=== PATIENT | male | born 1965 | race Caucasian/White ===

== ENCOUNTER → 2022-03-31 | Outpatient (CLI) | payer MEDICARE, OTHER ==
[~2022-03-31] MED LIST: AMPYRA10 MG; ASPI81CH; BACL10 PO; Baclofen20 MG; CITA20; CLON.5 PO; FOLGARD TABLET1 EACH; GABA300T24; Icaps Mv Table1 EACH; MARIJUANA-MEDICAL; OXYC10TA19
[2022-03-31 12:27] LABS: BASOPHILS ABSOLUTE AUTO 0.03 K/mm3 (0.00-0.23); BASOPHILS PERCENT AUTO 0 % (0-2); EOSINOPHILS ABSOLUTE AUTO 0.26 K/mm3 (0.00-0.68); EOSINOPHILS PERCENT AUTO 3 % (0-6); Hematocrit 42.9 % (37.0-53.0); Hemoglobin 15.2 g/dL (13.5-17.5); IMMATURE GRAN ABSOLUTE AUTO 0.01 K/mm3 (0.00-0.10); IMMATURE GRAN PERCENT AUTO 0 % (0-1); LYMPHOCYTES ABSOLUTE AUTO 1.53 K/mm3 (0.84-5.20); LYMPHOCYTES PERCENT AUTO 17 % (21-46); MONOCYTES ABSOLUTE AUTO 0.72 K/mm3 (0.16-1.47); MONOCYTES PERCENT AUTO 8 % (4-13); Mean Corpuscular HGB 32.3 pg (26.0-34.0); Mean Corpuscular HGB Conc 35.4 g/dL (31.5-36.5); Mean Corpuscular Volume 91 fL (80-100); Mean Platelet Volume 11.8 fL (9.1-12.4); NEUTROPHILS PERCENT AUTO 72 % (41-73); Platelet Count 243 K/mm3 (150-400); RDW Coefficient Variation 11.9 % (11.7-14.2); RDW Standard Deviation 39.5 fL (35.1-46.3); White Blood Cell Count 8.95 K/mm3 (4.00-11.30)
[2022-03-31 13:02] LABS: Albumin, Blood 3.6 g/dL (3.4-5.0); Bilirubin, Total 0.7 mg/dL (0.1-1.0); Bun/Creatinine Ratio 11.6 (12.0-20.0); Calcium, Blood 8.8 mg/dL (8.5-10.1); Creatinine, Blood 1.21 mg/dL (0.60-1.20); Globulin, Blood 3.5 g/dL (2.2-4.0); Potassium, Blood 3.9 mmol/L (3.5-5.5); Total Protein, Blood 7.1 g/dL (6.4-8.2)
== END | disposition home or self-care (01) ==
LOC: LAB SHORT 12:11 → LAB 12:11
PROVIDERS: Chiropractor
DX: R07.9 Chest pain, unspecified (principal)
CPT/HCPCS: 80053; 84484; 85025; 85379

== ENCOUNTER 2022-05-23 11:30 | Emergency (ER) | payer MEDICARE, OTHER ==
[~2022-05-23] VITALS: Ht 177.8 cm; Wt 79.4 kg
[~2022-05-23 11:30] MED LIST changes: +BACL20 PO; +EFFEXOR XR37.5 MG PO; +KESIMPTA P20 MG/0.4 SC; +TAMSULOSIN HCL0.4 M1 PO
[2022-05-23] MEDS ORDERED: Roxicodone5 MG PO (11:40)
== END 2022-05-23 11:42 | disposition home or self-care (01) ==
LOC: ER 11:30
DX: Z76.0 Encounter for issue of repeat prescription (principal); J44.9 Chronic obstructive pulmonary disease, unspecified; G35 Multiple sclerosis; Z88.8 Allergy status to other drugs, medicaments and biological substances; Z79.899 Other long term (current) drug therapy; Z79.82 Long term (current) use of aspirin; Z87.891 Personal history of nicotine dependence
CPT/HCPCS: 99281

== ENCOUNTER 2022-06-12 19:29 | Observation (INO) | payer MEDICARE, OTHER ==
[~2022-06-12] VITALS: Ht 182.9 cm; Wt 79.4 kg
[~2022-06-12 19:29] MED LIST changes: +Roxicodone5 MG PO
[2022-06-12 19:57] LABS: BASOPHILS ABSOLUTE AUTO 0.02 K/mm3 (0.00-0.23); BASOPHILS PERCENT AUTO 0 % (0-2); EOSINOPHILS PERCENT AUTO 0 % (0-6); Hematocrit 37.4 % (37.0-53.0); Hemoglobin 13.6 g/dL (13.5-17.5); IMMATURE GRAN ABSOLUTE AUTO 0.06 K/mm3 (0.00-0.10); IMMATURE GRAN PERCENT AUTO 0 % (0-1); LYMPHOCYTES ABSOLUTE AUTO 0.87 K/mm3 (0.84-5.20); LYMPHOCYTES PERCENT AUTO 6 % (21-46); MONOCYTES ABSOLUTE AUTO 0.71 K/mm3 (0.16-1.47); MONOCYTES PERCENT AUTO 5 % (4-13); Mean Corpuscular HGB 32.1 pg (26.0-34.0); Mean Corpuscular HGB Conc 36.4 g/dL (31.5-36.5); Mean Corpuscular Volume 88 fL (80-100); NEUTROPHILS PERCENT AUTO 89 % (41-73); Platelet Count 267 K/mm3 (150-400); RDW Coefficient Variation 11.7 % (11.7-14.2); RDW Standard Deviation 37.3 fL (35.1-46.3); Red Blood Cell Count 4.24 M/mm3 (4.30-5.90); White Blood Cell Count 14.56 K/mm3 (4.00-11.30)
[2022-06-12 20:16] LABS: Albumin, Blood 3.2 g/dL (3.4-5.0); Albumin/Globulin Ratio 0.9 (0.8-1.8); Bun/Creatinine Ratio 12.5 (12.0-20.0); Calcium, Blood 8.9 mg/dL (8.5-10.1); Creatinine, Blood 1.12 mg/dL (0.60-1.20); Globulin, Blood 3.4 g/dL (2.2-4.0); Potassium, Blood 3.8 mmol/L (3.5-5.5); Total Protein, Blood 6.6 g/dL (6.4-8.2)
[2022-06-12 21:35] LABS: Source, Urine Clean Catch
[2022-06-12 21:45] LABS: Bilirubin, Urine Neg (Neg); Blood, Urine 1+ (Neg); Glucose Qualitative, Urine Neg (Neg); Ketones, Urine 3+ (Neg); Leukocyte Esterase, Urine Neg (Neg); Nitrite, Urine Neg (Neg); Protein, Urine 2+ (Neg); Urobilinogen, Urine NORM (Normal); pH, Urine 6.5 (5.0-8.0)
[2022-06-12 21:51] LABS: Appearance, Urine Clear (Clear); Color, Urine Yellow (P-Yellow)
[2022-06-12 21:52] LABS: Bacteria Rare /hpf; Red Blood Cells, Urine 0-2 /hpf (0-2); Squamous Epithelial Cells Few /hpf (Few); White Blood Cells, Urine 0-2 /hpf (0-5)
[2022-06-13] MEDS ORDERED: METOPROLOL SUCC25 MG PO (02:23)
[2022-06-13] MEDS ORDERED: Prinivil10 MG PO (02:24)
[2022-06-13] MEDS ORDERED: FLUTICASONE-SA1 EAC9 INH (02:24)
[2022-06-13] MEDS ORDERED: OXYC5 PO (02:25)
[2022-06-13] MEDS ORDERED: Ventolin/Prove6.7 GM INH (02:27)
[2022-06-13] MEDS ORDERED: Ondansetron Odt8 MG MM (02:29)
[2022-06-13] MEDS ORDERED: METO10 PO (02:30)
--- NOTE | 2022-06-13 04:34 | NUR ---
Shift summary: Pt arrived on unit from ED around 0030. Upon arrival pt noted he was still having nausea- PRN dose of reglan given x1 as zofran was given in the ED. Upon assessment pt lung sounds were diminshed throughout the bases. Tele monitor in place and running sinus tach, although no calls from tele overnight. Pt had c/o feeling too hot and then cold, when checking temperature pt was afebrile. Pt voiding small amounts of gage colored urine. IVF currently infusing at 150mL/hr.
[2022-06-13 06:33] LABS: Calcium, Blood 8.2 mg/dL (8.5-10.1); Creatinine, Blood 1.08 mg/dL (0.60-1.20); Potassium, Blood 3.4 mmol/L (3.5-5.5)
--- NOTE | 2022-06-13 18:28 | NUR ---
SHIFT SUMMARY; PATIENT VERY PAINFULL AND NEEDING TO BE TURNED EVERY 30 MINUTES OR SO. HE CANNOT GET COMFORTABLE. PATIENT COMPLAINS OF NAUSEA AND IS MEDICATED WITH REGLAN. HE IS ABLE TO EAT SMALL PORTIONS OF HIS MEALS TODAY. PATIENT RECEIVED A BED BATH TODAY AND HAD MULTIPLE VISITORS. HE HAS A PLEASANT AFFECT AND IS COOPERATIVE WITH CARE. HIS VITAL SIGNS ARE ELEVATED WITH B/P IN THE 140-150 SYSTOLIC RANGE AND HIS RHYTHM BEING SINUS TACH FOR MOST OF THE DAY.
--- NOTE | 2022-06-14 04:49 | NUR ---
Summary: Patient did well overnight no acute events. VSS. Medicated per emar for nausea. Assisted patient onto bedside commode 2 person max stand pivot. Patient reports he has been able to keep a few liquids down during the day but stated he did not want anything to drink at the begining of shift. IV fluids running. Patient reports feeling hot and sweaty then very cold. No fever present when checked. Provided patient popcicles this am. Frequent call light use.
[2022-06-14 05:29] LABS: BASOPHILS ABSOLUTE AUTO 0.01 K/mm3 (0.00-0.23); BASOPHILS PERCENT AUTO 0 % (0-2); EOSINOPHILS ABSOLUTE AUTO 0.01 K/mm3 (0.00-0.68); EOSINOPHILS PERCENT AUTO 0 % (0-6); Hematocrit 33.1 % (37.0-53.0); Hemoglobin 11.8 g/dL (13.5-17.5); IMMATURE GRAN ABSOLUTE AUTO 0.05 K/mm3 (0.00-0.10); IMMATURE GRAN PERCENT AUTO 1 % (0-1); LYMPHOCYTES ABSOLUTE AUTO 0.53 K/mm3 (0.84-5.20); LYMPHOCYTES PERCENT AUTO 5 % (21-46); MONOCYTES ABSOLUTE AUTO 0.18 K/mm3 (0.16-1.47); MONOCYTES PERCENT AUTO 2 % (4-13); Mean Corpuscular HGB 31.4 pg (26.0-34.0); Mean Corpuscular HGB Conc 35.6 g/dL (31.5-36.5); Mean Corpuscular Volume 88 fL (80-100); NEUTROPHILS PERCENT AUTO 93 % (41-73); Platelet Count 252 K/mm3 (150-400); RDW Coefficient Variation 11.4 % (11.7-14.2); RDW Standard Deviation 36.5 fL (35.1-46.3); Red Blood Cell Count 3.76 M/mm3 (4.30-5.90); White Blood Cell Count 11.08 K/mm3 (4.00-11.30)
[2022-06-14 06:02] LABS: Albumin, Blood 2.4 g/dL (3.4-5.0); Anion Gap 13 mmol/L (6-16); Blood Urea Nitrogen 14 mg/dL (8-24); Bun/Creatinine Ratio 16.9 (12.0-20.0); CO2, Blood 26 mmol/L (21-32); Chloride, Blood 87 mmol/L (98-108); Creatinine, Blood 0.83 mg/dL (0.60-1.20); Glomerular Filtration Rate 101 (60-); Glucose, Blood 95 mg/dL (70-99); Phosphorus, Blood 1.9 mg/dL (2.5-4.9); Sodium, Blood 126 mmol/L (136-145)
[2022-06-14] MEDS ORDERED: POTA20LUD PO (10:08)
[2022-06-14] MEDS ORDERED: NA PHOS PO (10:20)
[2022-06-14] MEDS ORDERED: K PHOS PO (10:20)
--- NOTE | 2022-06-14 11:02 | NUR ---
DISCHARGE REMOVED BY AIDE, IV PULLED BY AIDE. DISCHARGE REVIEWED BY PT AND ADVERTISING SALES REPRESENTATIVE. PT STATES UNDERSTANDING MEDS AND INST. PT WHEELED TO DOOR AT 1058 BY AIDE.
== END 2022-06-14 11:08 | disposition home or self-care (01) ==
LOC: ER 19:29 → MEDS 19:30
PROVIDERS: Emergency Medicine; Family Medicine; ADMIT Internal Medicine
DX: R11.2 Nausea with vomiting, unspecified (principal); E87.1 Hypo-osmolality and hyponatremia; E86.0 Dehydration; E87.6 Hypokalemia; C64.9 Malignant neoplasm of unspecified kidney, except renal pelvis; C79.9 Secondary malignant neoplasm of unspecified site; D72.829 Elevated white blood cell count, unspecified; Z88.8 Allergy status to other drugs, medicaments and biological substances; Z87.891 Personal history of nicotine dependence
CPT/HCPCS: 36415; 71045; 80048; 80053; 80069; 81001; 85025; 93005; 93010; 94760; 96361; 96365; 96366; 96372; 96375; 96376; A9270; G0378; J1650; J2405; J2765; J3480; J7030

== ENCOUNTER → 2022-06-18 | Outpatient (CLI) | payer MEDICARE, OTHER ==
[~2022-06-18] MED LIST changes: +Ativan0.5 MG PO; +FLUTICASONE-SA1 EAC9 INH; +K PHOS PO; +METO10 PO; +METOPROLOL SUCC25 MG PO; +NA PHOS PO; +OXYC5 PO; +Ondansetron Odt8 MG MM; +POTA20LUD PO; +Prinivil10 MG PO; +Ventolin/Prove6.7 GM INH
[2022-06-18 16:46] LABS: Sodium, Urine, Random 50 mmol/L (20-110)
[2022-06-18 17:48] LABS: Osmolality, Urine 182 mos/kg (15-1400)
== END | disposition home or self-care (01) ==
LOC: LAB 12:30 → LAB SHORT 12:30
PROVIDERS: Nurse Practitioner
DX: C65.2 Malignant neoplasm of left renal pelvis (principal); E87.1 Hypo-osmolality and hyponatremia
CPT/HCPCS: 83935; 84300

== ENCOUNTER 2022-06-21 18:22 | Emergency (ER) | payer MEDICARE, OTHER ==
[~2022-06-21] VITALS: Ht 177.8 cm; Wt 77.1 kg
[~2022-06-21 18:22] MED LIST changes: -Ativan0.5 MG PO
[2022-06-21 21:01] LABS: BASOPHILS ABSOLUTE AUTO 0.01 K/mm3 (0.00-0.23); BASOPHILS PERCENT AUTO 0 % (0-2); EOSINOPHILS ABSOLUTE AUTO 0.09 K/mm3 (0.00-0.68); EOSINOPHILS PERCENT AUTO 1 % (0-6); Hematocrit 34.1 % (37.0-53.0); Hemoglobin 11.9 g/dL (13.5-17.5); IMMATURE GRAN ABSOLUTE AUTO 0.03 K/mm3 (0.00-0.10); IMMATURE GRAN PERCENT AUTO 1 % (0-1); LYMPHOCYTES ABSOLUTE AUTO 1.09 K/mm3 (0.84-5.20); LYMPHOCYTES PERCENT AUTO 17 % (21-46); MONOCYTES ABSOLUTE AUTO 0.08 K/mm3 (0.16-1.47); MONOCYTES PERCENT AUTO 1 % (4-13); Mean Corpuscular HGB 31.3 pg (26.0-34.0); Mean Corpuscular HGB Conc 34.9 g/dL (31.5-36.5); Mean Corpuscular Volume 90 fL (80-100); Mean Platelet Volume 9.9 fL (9.1-12.4); NEUTROPHILS ABSOLUTE AUTO 5.22 K/mm3 (1.96-9.15); NEUTROPHILS PERCENT AUTO 80 % (41-73); Platelet Count 325 K/mm3 (150-400); RDW Coefficient Variation 11.4 % (11.7-14.2); RDW Standard Deviation 37.4 fL (35.1-46.3); White Blood Cell Count 6.52 K/mm3 (4.00-11.30)
[2022-06-21 21:21] LABS: Bun/Creatinine Ratio 14.3 (12.0-20.0); Calcium, Blood 9.1 mg/dL (8.5-10.1); Creatinine, Blood 1.47 mg/dL (0.60-1.20); Potassium, Blood 4.9 mmol/L (3.5-5.5)
[2022-06-25] MEDS ORDERED: Ativan0.5 MG PO (12:06)
== END 2022-06-22 00:05 | disposition home or self-care (01) ==
LOC: ER 18:22
PROVIDERS: Emergency Medicine
DX: R11.2 Nausea with vomiting, unspecified (principal); T45.1X5A Adverse effect of antineoplastic and immunosuppressive drugs, initial encounter; J44.9 Chronic obstructive pulmonary disease, unspecified; G35 Multiple sclerosis; Z88.8 Allergy status to other drugs, medicaments and biological substances; Z79.899 Other long term (current) drug therapy; Z87.891 Personal history of nicotine dependence
CPT/HCPCS: 36415; 80048; 85025; 96361; 96374; 96375; 99284-25; A9270; J0780; J2270; J2405; J3360; J7030

== ENCOUNTER 2022-07-02 19:22 | Emergency (ER) | payer MEDICARE, OTHER ==
[~2022-07-02] VITALS: Ht 177.8 cm; Wt 77.1 kg
[~2022-07-02 19:22] MED LIST changes: +Ativan0.5 MG PO
[2022-07-03 00:02] LABS: BASOPHILS ABSOLUTE AUTO 0.02 K/mm3 (0.00-0.23); BASOPHILS PERCENT AUTO 0 % (0-2); EOSINOPHILS ABSOLUTE AUTO 0.02 K/mm3 (0.00-0.68); EOSINOPHILS PERCENT AUTO 0 % (0-6); Hematocrit 32.2 % (37.0-53.0); Hemoglobin 11.7 g/dL (13.5-17.5); IMMATURE GRAN ABSOLUTE AUTO 0.03 K/mm3 (0.00-0.10); IMMATURE GRAN PERCENT AUTO 0 % (0-1); LYMPHOCYTES ABSOLUTE AUTO 0.62 K/mm3 (0.84-5.20); LYMPHOCYTES PERCENT AUTO 8 % (21-46); MONOCYTES ABSOLUTE AUTO 0.17 K/mm3 (0.16-1.47); MONOCYTES PERCENT AUTO 2 % (4-13); Mean Corpuscular HGB 31.7 pg (26.0-34.0); Mean Corpuscular HGB Conc 36.3 g/dL (31.5-36.5); Mean Corpuscular Volume 87 fL (80-100); Mean Platelet Volume 9.7 fL (9.1-12.4); NEUTROPHILS ABSOLUTE AUTO 6.52 K/mm3 (1.96-9.15); NEUTROPHILS PERCENT AUTO 88 % (41-73); Platelet Count 571 K/mm3 (150-400); RDW Coefficient Variation 11.8 % (11.7-14.2); RDW Standard Deviation 36.9 fL (35.1-46.3); Red Blood Cell Count 3.69 M/mm3 (4.30-5.90); White Blood Cell Count 7.38 K/mm3 (4.00-11.30)
[2022-07-03 00:16] LABS: Albumin, Blood 3.2 g/dL (3.4-5.0); Albumin/Globulin Ratio 0.8 (0.8-1.8); Bilirubin, Direct 0.2 mg/dL (0.0-0.3); Bilirubin, Indirect 0.5 mg/dL (0.1-0.7); Bilirubin, Total 0.7 mg/dL (0.1-1.0); Bun/Creatinine Ratio 14.1 (12.0-20.0); Creatinine, Blood 1.49 mg/dL (0.60-1.20); Globulin, Blood 3.8 g/dL (2.2-4.0); Magnesium, Blood 1.9 mg/dL (1.6-2.4)
[2022-07-03 02:57] LABS: Bun/Creatinine Ratio 15.7 (12.0-20.0); Creatinine, Blood 1.4 mg/dL (0.60-1.20); Potassium, Blood 3.6 mmol/L (3.5-5.5)
[2022-07-03] MEDS ORDERED: PROM12.5S PR (06:06)
== END 2022-07-03 06:56 | disposition home or self-care (01) ==
LOC: ER 19:22
PROVIDERS: Student in an Organized Health Care Education/Training Program
DX: R11.2 Nausea with vomiting, unspecified (principal); T45.1X5A Adverse effect of antineoplastic and immunosuppressive drugs, initial encounter; C64.9 Malignant neoplasm of unspecified kidney, except renal pelvis; E87.1 Hypo-osmolality and hyponatremia; J44.9 Chronic obstructive pulmonary disease, unspecified; F32.A Depression, unspecified; G35 Multiple sclerosis; Z88.8 Allergy status to other drugs, medicaments and biological substances; Z79.899 Other long term (current) drug therapy; Z87.891 Personal history of nicotine dependence
CPT/HCPCS: 80048; 80076; 83690; 83735; 85025; 93005; 93010; A9270; J1200; J2550; J2765; J7030; J7042

== ENCOUNTER 2022-07-27 06:09 | Emergency (ER) | payer MEDICARE, OTHER ==
[~2022-07-27] VITALS: Ht 182.9 cm; Wt 79.4 kg
[~2022-07-27 06:09] MED LIST changes: +PROM12.5S PR
[2022-07-27 08:07] LABS: BASOPHILS ABSOLUTE AUTO 0.01 K/mm3 (0.00-0.23); BASOPHILS PERCENT AUTO 0 % (0-2); EOSINOPHILS PERCENT AUTO 0 % (0-6); Hematocrit 26.7 % (37.0-53.0); Hemoglobin 9.7 g/dL (13.5-17.5); IMMATURE GRAN ABSOLUTE AUTO 0.02 K/mm3 (0.00-0.10); IMMATURE GRAN PERCENT AUTO 0 % (0-1); LYMPHOCYTES ABSOLUTE AUTO 0.98 K/mm3 (0.84-5.20); LYMPHOCYTES PERCENT AUTO 19 % (21-46); MONOCYTES PERCENT AUTO 8 % (4-13); Mean Corpuscular HGB 31.8 pg (26.0-34.0); Mean Corpuscular HGB Conc 36.3 g/dL (31.5-36.5); Mean Corpuscular Volume 88 fL (80-100); Mean Platelet Volume 10.5 fL (9.1-12.4); NEUTROPHILS ABSOLUTE AUTO 3.79 K/mm3 (1.96-9.15); NEUTROPHILS PERCENT AUTO 73 % (41-73); Platelet Count 465 K/mm3 (150-400); RDW Coefficient Variation 13.2 % (11.7-14.2); RDW Standard Deviation 41.2 fL (35.1-46.3); Red Blood Cell Count 3.05 M/mm3 (4.30-5.90)
[2022-07-27 08:23] LABS: Albumin, Blood 2.9 g/dL (3.4-5.0); Albumin/Globulin Ratio 0.9 (0.8-1.8); Bilirubin, Total 0.5 mg/dL (0.1-1.0); Bun/Creatinine Ratio 28.2 (12.0-20.0); Creatinine, Blood 1.88 mg/dL (0.60-1.20); Globulin, Blood 3.2 g/dL (2.2-4.0); Potassium, Blood 3.4 mmol/L (3.5-5.5); Total Protein, Blood 6.1 g/dL (6.4-8.2)
[2022-07-27 09:01] LABS: Influenza A, PCR NEGATIVE (NEGATIVE); Influenza B, PCR NEGATIVE (NEGATIVE); Resp Syncytial Virus, PCR NEGATIVE (NEGATIVE); SARS-Cov-2 (COVID-19) PCR, MMC NEGATIVE (NEGATIVE)
[2022-07-27 09:38] LABS: Source, Urine Clean Catch
[2022-07-27 09:41] LABS: Appearance, Urine Clear (Clear); Bilirubin, Urine Neg (Neg); Blood, Urine Neg (Neg); Color, Urine Yellow (P-Yellow); Glucose Qualitative, Urine 1+ (Neg); Ketones, Urine Neg (Neg); Leukocyte Esterase, Urine Neg (Neg); Nitrite, Urine Neg (Neg); Protein, Urine 2+ (Neg); Urobilinogen, Urine NORM (Normal)
[2022-07-27 09:59] LABS: Bacteria Rare /hpf; Red Blood Cells, Urine 0-2 /hpf (0-2); Squamous Epithelial Cells Not Seen /hpf (Few); White Blood Cells, Urine 0-2 /hpf (0-5)
[2022-07-27 10:00] LABS: Amorphous Light (0-Heavy)
== END 2022-07-27 11:00 | disposition home or self-care (01) ==
LOC: ER 06:09
PROVIDERS: Physician Assistant
DX: R40.4 Transient alteration of awareness (principal); J44.9 Chronic obstructive pulmonary disease, unspecified; G35 Multiple sclerosis; Z87.891 Personal history of nicotine dependence; Z20.822 Contact with and (suspected) exposure to COVID-19; Z88.8 Allergy status to other drugs, medicaments and biological substances; Z79.899 Other long term (current) drug therapy
CPT/HCPCS: 0241U; 36415; 51701; 80053; 81001; 85025; 93005; 93010; J2405

== ENCOUNTER 2022-08-17 15:56 | Emergency (ER) | payer MEDICARE, OTHER ==
[~2022-08-17] VITALS: Ht 182.9 cm; Wt 63.5 kg
[2022-08-17 16:27] LABS: BASOPHILS ABSOLUTE AUTO 0.02 K/mm3 (0.00-0.23); BASOPHILS PERCENT AUTO 0 % (0-2); EOSINOPHILS ABSOLUTE AUTO 0.02 K/mm3 (0.00-0.68); EOSINOPHILS PERCENT AUTO 0 % (0-6); Hematocrit 25.2 % (37.0-53.0); IMMATURE GRAN ABSOLUTE AUTO 0.04 K/mm3 (0.00-0.10); IMMATURE GRAN PERCENT AUTO 1 % (0-1); LYMPHOCYTES ABSOLUTE AUTO 2.22 K/mm3 (0.84-5.20); LYMPHOCYTES PERCENT AUTO 26 % (21-46); MONOCYTES ABSOLUTE AUTO 0.91 K/mm3 (0.16-1.47); MONOCYTES PERCENT AUTO 11 % (4-13); Mean Corpuscular HGB 32.7 pg (26.0-34.0); Mean Corpuscular HGB Conc 35.7 g/dL (31.5-36.5); Mean Corpuscular Volume 92 fL (80-100); Mean Platelet Volume 10.2 fL (9.1-12.4); NEUTROPHILS PERCENT AUTO 62 % (41-73); Platelet Count 291 K/mm3 (150-400); RDW Coefficient Variation 15.7 % (11.7-14.2); RDW Standard Deviation 51.7 fL (35.1-46.3); Red Blood Cell Count 2.75 M/mm3 (4.30-5.90); White Blood Cell Count 8.51 K/mm3 (4.00-11.30)
[2022-08-17 16:45] LABS: Albumin, Blood 2.7 g/dL (3.4-5.0); Albumin/Globulin Ratio 0.7 (0.8-1.8); Bilirubin, Total 0.5 mg/dL (0.1-1.0); Bun/Creatinine Ratio 17.1 (12.0-20.0); Calcium, Blood 8.8 mg/dL (8.5-10.1); Creatinine, Blood 1.52 mg/dL (0.60-1.20); Globulin, Blood 3.9 g/dL (2.2-4.0); Potassium, Blood 3.8 mmol/L (3.5-5.5); Total Protein, Blood 6.6 g/dL (6.4-8.2)
[2022-08-17 20:06] LABS: Source, Urine Clean Catch
[2022-08-17 20:18] LABS: Bilirubin, Urine Neg (Neg); Blood, Urine 4+ (Neg); Color, Urine Yellow (P-Yellow); Glucose Qualitative, Urine Neg (Neg); Ketones, Urine Neg (Neg); Leukocyte Esterase, Urine 3+ (Neg); Nitrite, Urine Pos (Neg); Protein, Urine 2+ (Neg); Urobilinogen, Urine NORM (Normal)
[2022-08-17 20:21] LABS: Appearance, Urine Cloudy (Clear)
[2022-08-17 20:26] LABS: White Blood Cells, Urine 50-100 /hpf (0-5)
[2022-08-17 20:28] LABS: Bacteria Many /hpf; Squamous Epithelial Cells Few /hpf (Few)
[2022-08-17] MEDS ORDERED: CEFD300 PO (22:19)
== END 2022-08-18 00:43 | disposition home or self-care (01) ==
LOC: ER 15:56
PROVIDERS: Physician Assistant
DX: N39.0 Urinary tract infection, site not specified (principal); E86.0 Dehydration; E87.1 Hypo-osmolality and hyponatremia; N28.9 Disorder of kidney and ureter, unspecified; J44.9 Chronic obstructive pulmonary disease, unspecified; G35 Multiple sclerosis; Z87.891 Personal history of nicotine dependence; Z79.899 Other long term (current) drug therapy; Z88.8 Allergy status to other drugs, medicaments and biological substances
CPT/HCPCS: 36415; 80053; 81001; 85025; 87077; 87086; 87186; J0696; J7030

== ENCOUNTER 2022-08-18 12:04 | Inpatient (IN) | payer MEDICARE, OTHER ==
[~2022-08-18] VITALS: Ht 177.8 cm; Wt 57.0 kg
[~2022-08-18 12:04] MED LIST changes: +CEFD300 PO
[2022-08-18 15:10] LABS: BASOPHILS ABSOLUTE AUTO 0.02 K/mm3 (0.00-0.23); BASOPHILS PERCENT AUTO 0 % (0-2); EOSINOPHILS PERCENT AUTO 0 % (0-6); Hematocrit 25.9 % (37.0-53.0); Hemoglobin 9.1 g/dL (13.5-17.5); IMMATURE GRAN ABSOLUTE AUTO 0.04 K/mm3 (0.00-0.10); IMMATURE GRAN PERCENT AUTO 0 % (0-1); LYMPHOCYTES ABSOLUTE AUTO 2.53 K/mm3 (0.84-5.20); LYMPHOCYTES PERCENT AUTO 25 % (21-46); MONOCYTES ABSOLUTE AUTO 0.95 K/mm3 (0.16-1.47); MONOCYTES PERCENT AUTO 9 % (4-13); Mean Corpuscular HGB 32.9 pg (26.0-34.0); Mean Corpuscular HGB Conc 35.1 g/dL (31.5-36.5); Mean Corpuscular Volume 94 fL (80-100); Mean Platelet Volume 10.1 fL (9.1-12.4); NEUTROPHILS ABSOLUTE AUTO 6.76 K/mm3 (1.96-9.15); NEUTROPHILS PERCENT AUTO 66 % (41-73); Platelet Count 304 K/mm3 (150-400); RDW Coefficient Variation 15.6 % (11.7-14.2); RDW Standard Deviation 52.1 fL (35.1-46.3); Red Blood Cell Count 2.77 M/mm3 (4.30-5.90)
[2022-08-18 15:46] LABS: Albumin, Blood 2.6 g/dL (3.4-5.0); Albumin/Globulin Ratio 0.7 (0.8-1.8); Bilirubin, Total 0.6 mg/dL (0.1-1.0); Calcium, Blood 8.9 mg/dL (8.5-10.1); Creatinine, Blood 1.1 mg/dL (0.60-1.20); Globulin, Blood 3.7 g/dL (2.2-4.0); Potassium, Blood 3.9 mmol/L (3.5-5.5); Total Protein, Blood 6.3 g/dL (6.4-8.2)
[2022-08-18 15:47] LABS: Influenza A, PCR NEGATIVE (NEGATIVE); Influenza B, PCR NEGATIVE (NEGATIVE); Resp Syncytial Virus, PCR NEGATIVE (NEGATIVE); SARS-Cov-2 (COVID-19) PCR, MMC NEGATIVE (NEGATIVE)
--- NOTE | 2022-08-18 19:13 | NUR ---
SHIFT SUMMARY: REPORT RECEIVED FROM TESSIE AGUILAR IN ER. PT ARRIVED VIA GURNEY ALERT AWAKE BUT VERBALLY UNRESPONSIVE TO QUESTIONS. WOULD TRACK THIS RN IN ROOM. PAINAD 0/10. PT TX TO BED VIA 3 RN'S. PT INCONTINENT OF URINE IN ATTENDS. PT ATTENDS CHANGED AND NIKO CARE COMPLETED. IV FLUIDS FROM ER RESTARTED AT 100 ML/HR PER ORDER. CALL LIGHT WITHIN REACH, BED ALARM SET. REPORT GIVEN TO ONCOMING RN.
--- NOTE | 2022-08-18 23:32 | NUR ---
UPDATE WHILE REPOSITIONING PT AND BLADDER SCANNING PT, PT ASKED REHABILITATION SERVICES MANAGER "WHAT ARE YOU DOING?" WHEN PT ASKED IF HE KNEW WHERE HE WAS HE SAID " [facility]." PT STATED YEAR WAS "2021." VERY SLOW TO RESPOND. PT APPEARS TO HAVE DIFFICULTY FOLLOWING DIRECTION AT THIS TIME. BED ALARM IN PLACE. WILL CONT TO MONITOR.
[2022-08-19 01:11] LABS: Source, Urine Foley catheter
[2022-08-19 01:36] LABS: Bilirubin, Urine Neg (Neg); Blood, Urine 3+ (Neg); Glucose Qualitative, Urine Neg (Neg); Ketones, Urine 3+ (Neg); Leukocyte Esterase, Urine 3+ (Neg); Nitrite, Urine Pos (Neg); Protein, Urine 2+ (Neg); Urobilinogen, Urine NORM (Normal)
[2022-08-19 01:55] LABS: Appearance, Urine Hazy (Clear); Color, Urine Pale Yellow (P-Yellow)
[2022-08-19 01:57] LABS: Bacteria Many /hpf; Squamous Epithelial Cells Rare /hpf (Few); White Blood Cells, Urine 25-50 /hpf (0-5)
--- NOTE | 2022-08-19 04:41 | NUR ---
SHIFT SUMMARY PT ALERT AND RESPONDS SLOWLY AT TIMES. UNABLE TO RECIEVE PATIENTS PAST MEDICAL HX D/T PT'S MENTATION. PT NODS HEAD YES OR NO AT TIMES, AT TIMES PT DOES NOT RESPOND VERBALLY AND TRACKS WITH EYES ONLY. PT TURNED Q 2 HRS. FELIPE PLACED D/T RETENTION. OXYGEN SATURATION MAINTAINED ABOVE 92% ON RA. HR STABLE. BP STABLE. PT DOES NOT RESPOND WHEN ASKED IF IN PAIN. FELIPE DRAINING TO GRAVITY. BED ALARM IN PLACE. CALL LIGHT WITHIN REACH. WILL CONT TO MONITOR UNTIL REPORT GIVEN TO ZIYAD RN.
[2022-08-19 05:35] LABS: BASOPHILS ABSOLUTE AUTO 0.02 K/mm3 (0.00-0.23); BASOPHILS PERCENT AUTO 0 % (0-2); EOSINOPHILS ABSOLUTE AUTO 0.02 K/mm3 (0.00-0.68); EOSINOPHILS PERCENT AUTO 0 % (0-6); Hematocrit 28.1 % (37.0-53.0); Hemoglobin 9.8 g/dL (13.5-17.5); IMMATURE GRAN ABSOLUTE AUTO 0.02 K/mm3 (0.00-0.10); IMMATURE GRAN PERCENT AUTO 0 % (0-1); LYMPHOCYTES ABSOLUTE AUTO 1.84 K/mm3 (0.84-5.20); LYMPHOCYTES PERCENT AUTO 30 % (21-46); MONOCYTES ABSOLUTE AUTO 0.43 K/mm3 (0.16-1.47); MONOCYTES PERCENT AUTO 7 % (4-13); Mean Corpuscular HGB 32.3 pg (26.0-34.0); Mean Corpuscular HGB Conc 34.9 g/dL (31.5-36.5); Mean Corpuscular Volume 93 fL (80-100); Mean Platelet Volume 10.1 fL (9.1-12.4); NEUTROPHILS ABSOLUTE AUTO 3.79 K/mm3 (1.96-9.15); NEUTROPHILS PERCENT AUTO 62 % (41-73); Platelet Count 286 K/mm3 (150-400); RDW Coefficient Variation 15.9 % (11.7-14.2); RDW Standard Deviation 53.6 fL (35.1-46.3); Red Blood Cell Count 3.03 M/mm3 (4.30-5.90); White Blood Cell Count 6.12 K/mm3 (4.00-11.30)
[2022-08-19 05:55] LABS: Bun/Creatinine Ratio 23.3 (12.0-20.0); Calcium, Blood 9.2 mg/dL (8.5-10.1); Creatinine, Blood 0.99 mg/dL (0.60-1.20); Magnesium, Blood 1.9 mg/dL (1.6-2.4)
--- NOTE | 2022-08-19 20:12 | NUR ---
SHIFT SUMMARY REPORT FROM LAST SHIFT WAS THAT PTN WAS CONFUSED AND NONVERBAL. THIS AM THE PTN WAS SLOW TO RESOND AND QUIET, BUT ANSWERED QUESTIONS AND WAS ORIENTED TO MONTH AND YEAR. PTN BEDBOUND WITH MS, SOME CONTRACTURES TO EXTREMITIES. FELIPE IN PLACE FOR RETENTION. CAREGIVER SARA IN ROOM MUCH OF DAY, HELPED HIM EAT FOR MEALS. CAREGIVER REPORTED THAT PTN HAD CHEMOTHERAPY A COUPLE OF WEEKS AGO AND HAD NOT BEEN EATING MUCH. TODAY HE ATE GOOD FOR BOTH MEALS. CAREGIVER BROUGHT IN MEDICATION LIST AND CHARGE NURSE SUSSY DID A RECONCILLATION OF MEDICATIONS. CONTINUE TO MONITOR.
--- NOTE | 2022-08-20 05:41 | NUR ---
SHIFT SUMMARY PATIENT ALERT AND ORIENTED X3. MEDICATED PER EMAR FOR PAIN. HAD NO COMPLAINTS OF SHORTNESS OF BREATH. NO ACUTE ISSUES NOTED OVERNIGHT. CALL LIGHT WITHIN REACH. REPORT GIVEN TO ONCOMING RN.
[2022-08-20 06:42] LABS: Albumin, Blood 2.4 g/dL (3.4-5.0); Anion Gap 6 mmol/L (6-16); Blood Urea Nitrogen 18 mg/dL (8-24); Bun/Creatinine Ratio 17.5 (12.0-20.0); CO2, Blood 29 mmol/L (21-32); Calcium, Blood 8.5 mg/dL (8.5-10.1); Chloride, Blood 97 mmol/L (98-108); Creatinine, Blood 1.03 mg/dL (0.60-1.20); Glomerular Filtration Rate 84 (60-); Glucose, Blood 92 mg/dL (70-99); Phosphorus, Blood 2.6 mg/dL (2.5-4.9); Potassium, Blood 3.4 mmol/L (3.5-5.5); Sodium, Blood 132 mmol/L (136-145)
--- NOTE | 2022-08-20 13:08 | NUR ---
Spoke with Dr Muñoz earlier today and discussed case. Pt may benefit from discussion regarding code status wishes and advanced care planning. Pt sitting in chair upon arrival. Pt is A&OX4 and denies pain at this time. Pt struggles with responding with more than 1-2 word answers. Engaged in therapeutic conversation regarding code status wishes. Educated on life sustaining treatments including risk factors and implications of CPR. Discussed completing POLST with Pt being in agreement. Educated on each section to complete and choices. Assisted Pt with completing POLST. Pt's wishes are for no CPR but is ok with intubation, medication, and defibrilation. Gentle education on the importance of planning for the future as disease progresses. Also discussed the importance of determining a healthcare in store marketing representative. Ended visit to allow Pt to eat his lunch. Spoke with Dr Muñoz and discussed case. Placed order for code status of limited per V/O from Dr Muñoz. Palliative Care will remain available.
--- NOTE | 2022-08-20 19:34 | NUR ---
SHIFT SUMMARY PTN SEEN BY PT, OT, AND ST. ST RECOMMENDED ASSIST WITH MEALS, AND PO MEDICATION WHOLE IN APPLESAUCE. PTN CONTINUES TO BE A&O X2-3. HE SAT IN CHAIR FOR QUITE A WHILE TODAY AFTER PT, BUT WHEN HE GOT TO THE BED IN THE AFTERNOON HE SLEPT. CAREGIVER IN TODAY, REPORTS PTN NOT QUITE HIMSELF YET, NOT TALKATIVE LIKE HE WAS BEFORE. PTN DOES APPEAR SOMEWHAT WITHDRAWN, BUT HAS GOOD EYE CONTACT AND ANSWERS QUESTIONS APPROPRIATELY. CONTINUE TO MONITOR.
--- NOTE | 2022-08-21 05:06 | NUR ---
PATIENTS MENTATION HAS IMPROVED. COMPLAINED OF PAIN X2 AND TREATED X2. PATIENT AWOKE AROUND 0200 AND REQUESTING FOOD. GAVE PATINET FOOD AND HE RETURNED TO SLEEP. PATIENT CONTINUOUSLY QUESTIONING WHEN HE CAN BE DISCHARGED HOME BECAUSE HE WANTS TO BE HOME FOR HIS BIRTHDAY. NO ACUTE CHANGES OVERNIGHT
[2022-08-21 06:34] LABS: BASOPHILS ABSOLUTE AUTO 0.02 K/mm3 (0.00-0.23); BASOPHILS PERCENT AUTO 0 % (0-2); EOSINOPHILS ABSOLUTE AUTO 0.02 K/mm3 (0.00-0.68); EOSINOPHILS PERCENT AUTO 0 % (0-6); Hematocrit 23.9 % (37.0-53.0); Hemoglobin 8.3 g/dL (13.5-17.5); IMMATURE GRAN ABSOLUTE AUTO 0.02 K/mm3 (0.00-0.10); IMMATURE GRAN PERCENT AUTO 0 % (0-1); LYMPHOCYTES ABSOLUTE AUTO 2.51 K/mm3 (0.84-5.20); LYMPHOCYTES PERCENT AUTO 39 % (21-46); MONOCYTES ABSOLUTE AUTO 0.74 K/mm3 (0.16-1.47); MONOCYTES PERCENT AUTO 11 % (4-13); Mean Corpuscular HGB 32.3 pg (26.0-34.0); Mean Corpuscular HGB Conc 34.7 g/dL (31.5-36.5); Mean Corpuscular Volume 93 fL (80-100); Mean Platelet Volume 10.2 fL (9.1-12.4); NEUTROPHILS PERCENT AUTO 49 % (41-73); Platelet Count 259 K/mm3 (150-400); RDW Coefficient Variation 16.4 % (11.7-14.2); RDW Standard Deviation 55.6 fL (35.1-46.3); Red Blood Cell Count 2.57 M/mm3 (4.30-5.90); White Blood Cell Count 6.51 K/mm3 (4.00-11.30)
[2022-08-21 07:38] LABS: Albumin, Blood 2.3 g/dL (3.4-5.0); Anion Gap 7 mmol/L (6-16); Blood Urea Nitrogen 17 mg/dL (8-24); Bun/Creatinine Ratio 16.2 (12.0-20.0); CO2, Blood 29 mmol/L (21-32); Calcium, Blood 8.3 mg/dL (8.5-10.1); Chloride, Blood 96 mmol/L (98-108); Creatinine, Blood 1.05 mg/dL (0.60-1.20); Glomerular Filtration Rate 82 (60-); Glucose, Blood 94 mg/dL (70-99); Magnesium, Blood 1.5 mg/dL (1.6-2.4); Phosphorus, Blood 3.4 mg/dL (2.5-4.9); Potassium, Blood 3.7 mmol/L (3.5-5.5); Sodium, Blood 132 mmol/L (136-145)
--- NOTE | 2022-08-21 11:40 | NUR ---
RN NOTE MR MAGANA IS A&OX4, UP WITH PT TO THE WHEELCHAIR THIS AM AND BACK TO BED NOW. HE WAS ABLE TO STAND WITH THE WALKER AND GAIT BELT AND PIVOT. RIGHT LEG AND RIGHT ARM WEAKER THAN LEFT. HE SAID HE HAS 3/10 ABDOMINAL AND LEFT CLAVICLE CHRONIC PAIN, DESCRIBED DULL AT THE MOMENT. HE SAID HIS APPETITE HAS DECREASED SINCE CHEMO, ATE ABOUT HALF OF BREAKFAST. INCONT SOFT STOOL THIS AM. BED LOW, CALL LIGHT IN REACH, BED ALARM ON.
[2022-08-21] MEDS ORDERED: VISBIOME 112.51 EACH PO (13:46)
[2022-08-21] MEDS ORDERED: CIPR500 PO (13:47)
--- NOTE | 2022-08-21 15:06 | NUR ---
RN NOTE MR MAGANA VERBALISED UNDERSTANDING OF WRITTEN AND VERBAL DISCHARGE INSTRUCTIONS. FELIPE CATHETER REMOVED AT 1445HRS. MR MAGANA SAID HE DID NOT HAVE A FELIPE CATHETER AT HOME AND WANTED IT REMOVED. HE SAID HE USES A URINAL AT HOME. AWAITING RIDE. PIV TO BE REMOVED PRIOR TO DC.
--- NOTE | 2022-08-21 18:14 | NUR ---
DISCHARGE NOTE/SHIFT SUMMARY. DISCHARGED HOME FROM MEDICAL UNIT AT 1805HRS. HIS CAREGIVER/RIDE WAS LATER THAN EXPECTED; PIV WAS REMOVED WHEN HE WAS DUE BEFORE 5PM AFTER MR MAGANA SPOKE TO HIM ON THE PHONE AND HE WAS ON HIS WAY. HE WAS DELAYED AND DISCHARGE AT 1805. DISCHARGE INSTRUCTIONS REVIEWED WITH CAREGIVER, INCLUDING STAIN SPRAYER OF ANTIBIOTICS AND GIVE FULL DOSE. MR MAGANA HAD NO C/O PAIN, NO CONCERNS OR PROBLEMS VOICED AT TIME OF DISCHARGE.
== END 2022-08-21 18:10 | disposition home health service (06) | DRG 71 ==
LOC: ER 12:04 → MEDS 12:05
PROVIDERS: Emergency Medicine; Family Medicine; Internal Medicine; ADMIT Student in an Organized Health Care Education/Training Program
DX: G93.41 Metabolic encephalopathy (principal); C64.9 Malignant neoplasm of unspecified kidney, except renal pelvis; E87.1 Hypo-osmolality and hyponatremia; N39.0 Urinary tract infection, site not specified; R64 Cachexia; Z68.1 Body mass index [BMI] 19.9 or less, adult; J44.9 Chronic obstructive pulmonary disease, unspecified; F32.A Depression, unspecified; F41.9 Anxiety disorder, unspecified; D63.0 Anemia in neoplastic disease; G35 Multiple sclerosis; R62.7 Adult failure to thrive; B96.20 Unspecified Escherichia coli [E. coli] as the cause of diseases classified elsewhere; Z20.822 Contact with and (suspected) exposure to COVID-19; Z88.8 Allergy status to other drugs, medicaments and biological substances; Z79.899 Other long term (current) drug therapy; Z79.811 Long term (current) use of aromatase inhibitors; Z79.891 Long term (current) use of opiate analgesic; Z79.52 Long term (current) use of systemic steroids; Z79.51 Long term (current) use of inhaled steroids; Z79.2 Long term (current) use of antibiotics; Z98.890 Other specified postprocedural states; Z87.891 Personal history of nicotine dependence; Z92.21 Personal history of antineoplastic chemotherapy
CPT/HCPCS: 0241U; 36415; 70450; 71045; 80048; 80053; 80069; 81001; 82947; 83605; 83735; 85025; 87077; 87086; 87186; 92526; 92610; 93005; 93010; 96361; 96365; 96372; 96376; 97110; 97162; 97165; 97530; 99285-25; A9270; G0378; J0696; J1650; J7030; J7060

== ENCOUNTER 2022-09-14 09:29 | Day surgery (SDC) | payer MEDICARE, OTHER ==
[~2022-09-14] VITALS: Ht 175.3 cm; Wt 68.2 kg
[~2022-09-14 09:29] MED LIST changes: +ASPI81CH PO; +CIPR500 PO; +KLOR-CON 1010 ME2 PO; +PHOS-NAK PO; +VISBIOME 112.51 EACH PO
--- NOTE | 2022-09-14 12:41 | NUR ---
Noni Paws warming gown applied. Surgical site prepped with 2% Chlorhexidine cloth wipe. History, Chart, Medications and Allergies reviewed before start of procedure.Lungs clear T/O to Auscultation. Patient confirms NPO status and agrees with scheduled surgery. Pre-Op teaching done. Pt verbalizes understanding. Patient States Post-Procedure ride home has been arranged. Patient reports completing Chlorhexadine shower X2 prior to admission to hospital.
--- NOTE | 2022-09-14 16:05 | NUR ---
PT ALERT, NO ACUTE DISTRESS. DENIES PAIN. APPLE JUICE PROVIDED. PT FLORIST TO BEDSIDE. PT REPORTS READY TO GO HOME.
--- NOTE | 2022-09-14 16:30 | NUR ---
Patient States Post-Procedure ride home has been arranged. Discharge instructions reviewed with patient. Patient verbalizes understanding. Copy given to patient to take home. Discharged via pt wheelchair to private car for ride home.
== END 2022-09-14 16:30 | disposition home or self-care (01) ==
LOC: ORSCMMR 09:29 → ORD 10:45 → ORSCMMR 10:45
PROVIDERS: Surgery
PROC: 0JH63WZ Insertion of Totally Implantable Vascular Access Device into Chest Subcutaneous Tissue and Fascia, Percutaneous Approach (ICD-10-PCS; principal; 2022-09-14 12:30)
DX: C76.0 Malignant neoplasm of head, face and neck (principal); C68.9 Malignant neoplasm of urinary organ, unspecified; G35 Multiple sclerosis; E78.5 Hyperlipidemia, unspecified; J44.9 Chronic obstructive pulmonary disease, unspecified; Z79.899 Other long term (current) drug therapy; Z79.82 Long term (current) use of aspirin; Z87.891 Personal history of nicotine dependence
CPT/HCPCS: 77001; C1788; J0690; J1170; J1642; J2370; J2704; J2795; J3010; J7120

== ENCOUNTER 2022-12-16 20:40 | Inpatient (IN) | payer MEDICARE, OTHER ==
[~2022-12-16] VITALS: Ht 177.8 cm; Wt 68.0 kg
[2022-12-16 20:59] LABS: BASOPHILS ABSOLUTE AUTO 0.03 K/mm3 (0.00-0.23); BASOPHILS PERCENT AUTO 0 % (0-2); EOSINOPHILS ABSOLUTE AUTO 0.06 K/mm3 (0.00-0.68); EOSINOPHILS PERCENT AUTO 1 % (0-6); Hematocrit 36.3 % (37.0-53.0); Hemoglobin 11.7 g/dL (13.5-17.5); IMMATURE GRAN ABSOLUTE AUTO 0.03 K/mm3 (0.00-0.10); IMMATURE GRAN PERCENT AUTO 0 % (0-1); LYMPHOCYTES ABSOLUTE AUTO 1.02 K/mm3 (0.84-5.20); LYMPHOCYTES PERCENT AUTO 14 % (21-46); MONOCYTES ABSOLUTE AUTO 0.59 K/mm3 (0.16-1.47); MONOCYTES PERCENT AUTO 8 % (4-13); Mean Corpuscular HGB 30.4 pg (26.0-34.0); Mean Corpuscular HGB Conc 32.2 g/dL (31.5-36.5); Mean Corpuscular Volume 94 fL (80-100); Mean Platelet Volume 11.3 fL (9.1-12.4); NEUTROPHILS ABSOLUTE AUTO 5.34 K/mm3 (1.96-9.15); NEUTROPHILS PERCENT AUTO 76 % (41-73); Platelet Count 245 K/mm3 (150-400); RDW Coefficient Variation 12.9 % (11.7-14.2); RDW Standard Deviation 44.4 fL (35.1-46.3); Red Blood Cell Count 3.85 M/mm3 (4.30-5.90); White Blood Cell Count 7.07 K/mm3 (4.00-11.30)
[2022-12-16 21:15] LABS: Albumin, Blood 2.6 g/dL (3.4-5.0); Albumin/Globulin Ratio 0.7 (0.8-1.8); Bilirubin, Total 0.3 mg/dL (0.1-1.0); Bun/Creatinine Ratio 34.1 (12.0-20.0); Calcium, Blood 9.7 mg/dL (8.5-10.1); Creatinine, Blood 1.38 mg/dL (0.60-1.20); Globulin, Blood 3.6 g/dL (2.2-4.0); Potassium, Blood 4.5 mmol/L (3.5-5.5); Total Protein, Blood 6.2 g/dL (6.4-8.2)
[2022-12-16 22:50] LABS: Influenza A, PCR NEGATIVE (NEGATIVE); Influenza B, PCR NEGATIVE (NEGATIVE); Resp Syncytial Virus, PCR NEGATIVE (NEGATIVE); SARS-Cov-2 (COVID-19) PCR, MMC NEGATIVE (NEGATIVE)
[2022-12-17 00:33] LABS: International Normalized Ratio 1.09; Prothrombin Time Results 11.4 Sec (9.7-11.5)
[2022-12-17] MEDS ORDERED: MORP15ER PO (01:22)
[2022-12-17] MEDS ORDERED: VENL37.5 PO (01:24)
[2022-12-17 01:56] VITALS: BP 98/61
[2022-12-17 04:48] LABS: BASOPHILS ABSOLUTE AUTO 0.01 K/mm3 (0.00-0.23); BASOPHILS PERCENT AUTO 0 % (0-2); EOSINOPHILS ABSOLUTE AUTO 0.02 K/mm3 (0.00-0.68); EOSINOPHILS PERCENT AUTO 0 % (0-6); Hematocrit 34.2 % (37.0-53.0); Hemoglobin 11.2 g/dL (13.5-17.5); IMMATURE GRAN ABSOLUTE AUTO 0.02 K/mm3 (0.00-0.10); IMMATURE GRAN PERCENT AUTO 0 % (0-1); LYMPHOCYTES ABSOLUTE AUTO 1.45 K/mm3 (0.84-5.20); LYMPHOCYTES PERCENT AUTO 25 % (21-46); MONOCYTES ABSOLUTE AUTO 0.79 K/mm3 (0.16-1.47); MONOCYTES PERCENT AUTO 14 % (4-13); Mean Corpuscular HGB 30.9 pg (26.0-34.0); Mean Corpuscular HGB Conc 32.7 g/dL (31.5-36.5); Mean Corpuscular Volume 94 fL (80-100); Mean Platelet Volume 11.7 fL (9.1-12.4); NEUTROPHILS ABSOLUTE AUTO 3.46 K/mm3 (1.96-9.15); NEUTROPHILS PERCENT AUTO 60 % (41-73); Platelet Count 205 K/mm3 (150-400); RDW Standard Deviation 44.7 fL (35.1-46.3); Red Blood Cell Count 3.63 M/mm3 (4.30-5.90); White Blood Cell Count 5.75 K/mm3 (4.00-11.30)
[2022-12-17 05:06] LABS: Albumin, Blood 2.3 g/dL (3.4-5.0); Albumin/Globulin Ratio 0.7 (0.8-1.8); Bilirubin, Total 0.4 mg/dL (0.1-1.0); Bun/Creatinine Ratio 34.5 (12.0-20.0); Calcium, Blood 9.4 mg/dL (8.5-10.1); Creatinine, Blood 1.19 mg/dL (0.60-1.20); Globulin, Blood 3.2 g/dL (2.2-4.0); Potassium, Blood 4.4 mmol/L (3.5-5.5); Total Protein, Blood 5.5 g/dL (6.4-8.2)
--- NOTE | 2022-12-17 05:19 | NUR ---
BASKETBALL SCOUT SUMMARY/NEW ADMIT PT ADMIT F/ACUTE RESP FAILURE. XFERED PT TO BED W/SHEET. PT HAS CONTRACTURES OF ALL EXTREMITIES. TOTAL CARE. REQUIRED Q2 TURNS. INCONT OF BOWEL/BLADDER, ATTENDS INPLACE. PT HAS PRESSURE WOUND ON COCCYX; PIC IN CHART; MEPILEX PLACED. MANY ELSA PROMINENCES WITH BLANCHING REDNESS. PT A/OX4; PLEASANT AND COOPERATIVE. PT ON TELE; NS 85 BPM. PT NPO;PER DR ELMORE MEDS [place]. NEW ORDERS FOR PAIN MEDS PER MED RECONCILLIATION. PT WAS GIVEN MORPHINE IN ED; TAKES MORPHINE AT HOME. SO FAR SINCE ARRIVING PT HAS DECLINED NEED FOR PAIN MED. PT ORIENTED TO ROOM AND CALL LIGHT.
[2022-12-17 10:09] LABS: Automated BF WBC Count 0.179 K/mm3 (0-999)
[2022-12-17 10:10] LABS: Body Fluid WBC Count 179 /mm3 (0-999)
[2022-12-17 10:24] LABS: Protein, Body Fluid 3.1 g/dL
--- NOTE | 2022-12-17 11:07 | NUR ---
Palliative Care Consult for Advanced Care Planning. Pt is known to this science writer from previous hospital stays. Pt is A&OX4 and reports a tolerable 3/10 pain. Pt reports dyspnea has improved since thoracentesis. Pt's caregiver at bedside. Pt reports having a poor appetite. Pt appears significantly cachetic. Pt reports receiving immunotherapy infusions at Dr Schmidt's office. Continued therapeutic listening. Engaged in therapeutic discussion regarding code status wishes. Educated on life sustaining treatments including risks and implications of CPR/Intubation. Offered therapeutic listening as Pt processes information. Pt states being at the end of his life and his wishes are DNR. He is requesting to see a certified alcohol drug counselor for assistance with ideas for meals. Material Yard Clerk Eugene in to see Pt. Pt agreeable for continued PC visits. Spoke with Dr Barnard and discussed case. Placed DNR order in [employer] per V/O from Dr Barnard. Palliative Care will remain available
[2022-12-17 11:11] LABS: Albumin, Body Fluid 1.9 g/dL
[2022-12-17 12:07] LABS: RBC Count, Body Fluid 162 /mm3 (0-0)
[2022-12-17 12:43] LABS: Appearance, Body Fluid Clear (Clear); Color, Body Fluid Yellow (None-Yellow); Total Cell Count, Body Fluid 100
--- NOTE | 2022-12-17 18:34 | NUR ---
SHIFT SUMMARY SWALLOW STUDY DONE TODAY, CHANGED TO SOFT FINGER FOODS, THIN LIQUIDS, AND MEDICATIONS WHOLE IN APPLESAUCE. AWAITING O2 HOME EVAL. THORACENTESIS DONE THIS SHIFT, TAKING OFF APPROX 1L. ECHO DONE AT 0730 THIS AM. MEPILEX TO L BUTTOCKS WITH BREAK IN SKIN, CLEANED AND DRIED. CONTINUE PLAN OF CARE.
[2022-12-17 19:05] VITALS: BP 94/66
[2022-12-18 04:56] VITALS: BP 114/73
[2022-12-18 06:09] LABS: BASOPHILS ABSOLUTE AUTO 0.01 K/mm3 (0.00-0.23); BASOPHILS PERCENT AUTO 0 % (0-2); EOSINOPHILS ABSOLUTE AUTO 0.04 K/mm3 (0.00-0.68); EOSINOPHILS PERCENT AUTO 1 % (0-6); Hematocrit 36.5 % (37.0-53.0); Hemoglobin 11.8 g/dL (13.5-17.5); IMMATURE GRAN ABSOLUTE AUTO 0.02 K/mm3 (0.00-0.10); IMMATURE GRAN PERCENT AUTO 0 % (0-1); LYMPHOCYTES ABSOLUTE AUTO 1.64 K/mm3 (0.84-5.20); LYMPHOCYTES PERCENT AUTO 21 % (21-46); MONOCYTES ABSOLUTE AUTO 0.92 K/mm3 (0.16-1.47); MONOCYTES PERCENT AUTO 12 % (4-13); Mean Corpuscular HGB 30.3 pg (26.0-34.0); Mean Corpuscular HGB Conc 32.3 g/dL (31.5-36.5); Mean Corpuscular Volume 94 fL (80-100); Mean Platelet Volume 10.9 fL (9.1-12.4); NEUTROPHILS ABSOLUTE AUTO 5.25 K/mm3 (1.96-9.15); NEUTROPHILS PERCENT AUTO 67 % (41-73); Platelet Count 232 K/mm3 (150-400); RDW Coefficient Variation 13.1 % (11.7-14.2); RDW Standard Deviation 44.7 fL (35.1-46.3); Red Blood Cell Count 3.89 M/mm3 (4.30-5.90); White Blood Cell Count 7.88 K/mm3 (4.00-11.30)
[2022-12-18 06:33] LABS: Albumin, Blood 2.3 g/dL (3.4-5.0); Albumin/Globulin Ratio 0.7 (0.8-1.8); Bilirubin, Total 0.3 mg/dL (0.1-1.0); Bun/Creatinine Ratio 34.2 (12.0-20.0); Calcium, Blood 9.3 mg/dL (8.5-10.1); Creatinine, Blood 0.85 mg/dL (0.60-1.20); Globulin, Blood 3.5 g/dL (2.2-4.0); Potassium, Blood 4.4 mmol/L (3.5-5.5); Total Protein, Blood 5.8 g/dL (6.4-8.2)
--- NOTE | 2022-12-18 07:36 | NUR ---
Shift Summary Pt had large amount of thick white sputum early in the shift. No c/o of pain or SoB, occasional productive cough. On 3L O2, sat>92%. Frequent turns for comfort, Mepilex replaced on both sides near buttocks where the skin is still red and not blanchable. Pt is bedrest and has leg contractures. On tele running SR 70. Slept well though the night, VSS, pleasant and cooperative with care.
[2022-12-18 08:00] VITALS: BP 114/79
[2022-12-18 14:36] VITALS: BP 108/66
[2022-12-18] MEDS ORDERED: AMOCLA875 PO (16:18)
--- NOTE | 2022-12-18 16:29 | NUR ---
SHIFT SUMMARY PT A&OX4 AND IN PLEASENT MOOD T/O SHIFT. BEDRIDDEN DUE TO CONTRACTURES, Q2 TURN. TOLERATING PO INTAKE WELL. VSS. RA. CALL LIGHT W/IN REACH. TELE IN PLACE.
--- NOTE | 2022-12-18 19:00 | NUR ---
DISCHARGE PT A&OX4 HARDWARE ASSEMBLER AT BEDSIDE DURING DC DIRECTION. VSS. CAREGIVER PROVIDED PT W/ POWER CHAIR AND TRANSPORT. MED FAXED TO PEDRO AT [facility]. VSS. RA. IV AND TELE DCED
== END 2022-12-18 18:37 | disposition home or self-care (01) | DRG 180 ==
LOC: ER 20:40 → MEDS 23:51 → ENPENDDIS 12-18 15:03 → MEDS 12-18 18:37
PROVIDERS: Emergency Medicine; Internal Medicine; ADMIT Internal Medicine
PROC: 0W9B3ZX Drainage of Left Pleural Cavity, Percutaneous Approach, Diagnostic (ICD-10-PCS; principal; 2022-12-17)
DX: C78.01 Secondary malignant neoplasm of right lung (principal); J18.9 Pneumonia, unspecified organism; J96.01 Acute respiratory failure with hypoxia; J44.0 Chronic obstructive pulmonary disease with (acute) lower respiratory infection; E87.1 Hypo-osmolality and hyponatremia; C64.9 Malignant neoplasm of unspecified kidney, except renal pelvis; J91.0 Malignant pleural effusion; Z51.5 Encounter for palliative care; C78.02 Secondary malignant neoplasm of left lung; I95.9 Hypotension, unspecified; E86.9 Volume depletion, unspecified; D63.0 Anemia in neoplastic disease; G35 Multiple sclerosis; F32.A Depression, unspecified; F41.9 Anxiety disorder, unspecified; Z20.822 Contact with and (suspected) exposure to COVID-19; Z88.8 Allergy status to other drugs, medicaments and biological substances; Z79.82 Long term (current) use of aspirin; Z79.899 Other long term (current) drug therapy; Z79.891 Long term (current) use of opiate analgesic; Z98.890 Other specified postprocedural states; Z99.81 Dependence on supplemental oxygen; Z79.51 Long term (current) use of inhaled steroids; Z79.811 Long term (current) use of aromatase inhibitors; Z74.01 Bed confinement status; Z99.3 Dependence on wheelchair
CPT/HCPCS: 0241U; 32555; 36415; 71045; 71260; 80053; 82042; 82947; 83880; 84145; 84157; 85025; 85610; 88108; 88305; 88341; 88342; 89051; 92526; 92610; 93306; 94760; 96361; 96374; 99284-25; A9270; J0295; J1650; J7030; J7050; Q9967